=== PATIENT | male | born 1980 | race Caucasian/White ===

== ENCOUNTER 2025-03-03 18:20 | Emergency (ER) | payer MEDICAID ==
[2025-03-03] MEDS: Amoxicillin/Clavulanate K 875-125 MG Tab PO ONE (19:08)
== END 2025-03-03 19:17 | disposition home or self-care (01) ==
LOC: DL.ED 18:20
DX: K04.7 Periapical abscess without sinus (principal); F17.200 Nicotine dependence, unspecified, uncomplicated; Z86.16 Personal history of COVID-19
CPT/HCPCS: 99282; 99283; A9270

== ENCOUNTER 2025-06-22 22:52 | Emergency (ER) | payer MEDICAID ==
[2025-06-23] MEDS: Ketorolac 30 MG/ML SDV IVPUSH ONE (00:32)
[2025-06-23] MEDS: Ketorolac 30 MG/ML SDV IM ONE (00:32)
[2025-06-23] MEDS: Acetaminophen/oxyCODONE 325-5 MG Tab PO ONE (00:32)
[2025-06-23] MEDS: Dexamethasone 4 MG/ML SDV PO ONE (00:34)
[2025-06-23] MEDS: Take Home: Acetaminophen/oxyCODONE 325-5 MG, 5 Tab Pack PO ONE (01:38)
== END 2025-06-23 01:40 | disposition home or self-care (01) ==
LOC: DL.ED 22:52
DX: S39.012A Strain of muscle, fascia and tendon of lower back, initial encounter (principal); Z91.013 Allergy to seafood; Z86.16 Personal history of COVID-19; X50.0XXA Overexertion from strenuous movement or load, initial encounter; Y93.89 Activity, other specified
CPT/HCPCS: 96372; 99283; A9270; J1100; J1885